=== PATIENT | female | born 1965 | race Caucasian/White ===

== ENCOUNTER → 2017-05-29 | Outpatient (CLI) | payer BC ==
[~2017-05-29] MED LIST: OXYACE5T PO; PROM25 PO; SERT50
[2017-05-31 15:17] LABS: HPV Genotype 16 Not Detected (NOTDET); HPV Genotype 18 Not Detected (NOTDET)
[2017-06-10 16:29] LABS: HPV High Risk Other Not Detected (NOTDET)
== END | disposition home or self-care (01) ==
LOC: OLS 16:56
PROVIDERS: Obstetrics & Gynecology Gynecology
DX: Z12.4 Encounter for screening for malignant neoplasm of cervix (principal)
CPT/HCPCS: 87624; G0123

== ENCOUNTER → 2017-10-24 | Outpatient (CLI) | payer BC | END | disposition home or self-care (01) | LOC: LAB EV 17:41 → LAB SHORT 17:41 | DX: R07.0 Pain in throat (principal) | CPT/HCPCS: 87070 ==

== ENCOUNTER → 2018-06-03 | Outpatient (CLI) | payer BC ==
[2018-06-06 14:08] LABS: HPV 16 Negative (Negative); HPV 18 Negative (Negative); HPV OTHER HR TYPES Negative (Negative)
== END | disposition home or self-care (01) ==
LOC: LAB 13:49 → LAB SHORT 13:49
PROVIDERS: Obstetrics & Gynecology Gynecology
DX: Z12.4 Encounter for screening for malignant neoplasm of cervix (principal)
CPT/HCPCS: 87624; G0123

== ENCOUNTER 2018-09-11 13:56 | Day surgery (SDC) | payer BC ==
[~2018-09-11] VITALS: Ht 188 cm; Wt 81.6 kg
[2018-09-11] MEDS ORDERED: OMEPRAZOLE MAGN20 MG (14:37)
[2018-09-11] MEDS ORDERED: NORT10S (14:37)
[2018-09-11] MEDS ORDERED: SUMA25 (14:38)
== END 2018-09-11 16:30 | disposition home or self-care (01) ==
LOC: ORSCSDS 13:56
PROVIDERS: Internal Medicine Gastroenterology
PROC: 0DJ08ZZ Inspection of Upper Intestinal Tract, Via Natural or Artificial Opening Endoscopic (ICD-10-PCS; principal; 2018-09-11 15:15)
DX: R10.13 Epigastric pain (principal); Z87.11 Personal history of peptic ulcer disease; F32.9 Major depressive disorder, single episode, unspecified; Z79.899 Other long term (current) drug therapy
CPT/HCPCS: J2704; J7120

== ENCOUNTER 2019-09-22 05:58 | Day surgery (SDC) | payer BC ==
[~2019-09-22] VITALS: Ht 188 cm; Wt 80.2 kg
[~2019-09-22 05:58] MED LIST changes: +NORT10S PO; +OMEPRAZOLE MAGN20 MG PO; +SUMA25 PO
--- NOTE | 2019-09-22 06:40 | NUR ---
Ambulatory in Day Surgery History, Chart, Medications and Allergies reviewed before start of procedure. Lungs clear T/O to Auscultation. Patient confirms NPO status and agrees with scheduled surgery. Pre-Op teaching done. Pt verbalizes understanding.
--- NOTE | 2019-09-22 09:38 | NUR ---
0930- QUESTIONING IF SEEING ST ELEVATION ON 3-LEAD EKG. DR WISE CALLED TO PACU TO ASSESS. 0935- DENIES CHEST PAIN OR DISCOMFORT. DENIES SOB. DR WISE AT BEDSIDE. EKG ORDERED. 0935- 12 LEAD EKG SHOWN TO DR GARCIA. NO NEW ORDERS. ST ELEVATION NOT NOTED ON EKG.
--- NOTE | 2019-09-22 10:03 | NUR ---
1000- NO DRAINAGE NOTED TO ABD STERI STRIP SITES X4. REPORTS ANALGESIC HELPFUL FOR PAIN AND BROUGHT DOWN TO 2/10. DENIES NAUSEA. REPORT GIVEN TO STEP-DOWN RECOVERY NURSE, DEVON VALENZUELA RN.
--- NOTE | 2019-09-22 10:47 | NUR ---
Discharge instructions reviewed with patient. Patient verbalizes understanding. Copy given to patient to take home. Patient up to Ambulate independently. Gait steady. Patient States Post-Procedure ride home has been arranged. Discharged via wheelchair to private car for ride home.
--- NOTE | 2019-09-23 09:19 | NUR ---
09/23/19 0919 Juan Antonio Coppola CORECTED ITEMS
== END 2019-09-22 10:50 | disposition home or self-care (01) ==
LOC: ORSCMMR 05:58 → ORD 07:30 → ORSCMMR 10:50
PROVIDERS: Surgery
PROC: 0FT44ZZ Resection of Gallbladder, Percutaneous Endoscopic Approach (ICD-10-PCS; principal; 2019-09-22 07:30)
DX: K80.10 Calculus of gallbladder with chronic cholecystitis without obstruction (principal); K21.9 Gastro-esophageal reflux disease without esophagitis; Z79.899 Other long term (current) drug therapy
CPT/HCPCS: 88304; 93005; 93010; C1729; J0690; J1100; J2250; J2405; J2704; J2710; J3010; J7120

== ENCOUNTER → 2022-09-12 | Outpatient (CLI) | payer BC ==
[2022-09-13 15:10] LABS: HPV 16 Negative (Negative); HPV 18 Negative (Negative); HPV OTHER HR TYPES Negative (Negative)
== END | disposition home or self-care (01) ==
LOC: LAB 17:06 → LAB SHORT 17:06
PROVIDERS: Obstetrics & Gynecology
DX: Z01.419 Encounter for gynecological examination (general) (routine) without abnormal findings (principal)
CPT/HCPCS: 87624; G0145

== ENCOUNTER 2024-06-09 07:17 | Day surgery (SDC) | payer BC ==
[~2024-06-09] VITALS: Ht 188 cm; Wt 77.2 kg
[2024-06-09] MEDS ORDERED: propofoL 50 ML IV ONE (07:40)
[2024-06-09] MEDS ORDERED: Lactated Ringer's 1,000 ML IV ONE ×2 (07:40→08:18)
--- NOTE | 2024-06-09 09:50 | NUR ---
06/09/24 0950 Lawson Mcclain PT INFORMED TWICE IN PRE-OP THAT THE CASE BEFORE HER IS RUNNING LATE. PT GIVEN PHONE AND CALL LIGHT WITHIN REACH. IN WAITING ROOM INFORMED ROOM IS RUNNING LATE WELL. PT AND APPEARS CALM AND UNDERSTANDING. [employer] GIFT CARD GIVEN TO PATIENT FOR INCONVENIENCE.
[2024-06-09] MEDS ORDERED: Lidocaine HCl 2% Jelly 120MG/6ML SYR (20MG PER ML) ONE (10:32)
[2024-06-09 11:14] VITALS: BP 109/70
--- NOTE | 2024-06-09 15:15 | NUR ---
06/09/24 1515 Carmen Orona CASE STARTED BY JUSTIN CASTILLO AND COMPLETED BY AREN,RN
== END 2024-06-09 11:19 | disposition home or self-care (01) ==
LOC: ORSCSDS 07:17
PROVIDERS: Internal Medicine Gastroenterology
PROC: 0DJD8ZZ Inspection of Lower Intestinal Tract, Via Natural or Artificial Opening Endoscopic (ICD-10-PCS; principal; 2024-06-09 08:45)
DX: Z12.11 Encounter for screening for malignant neoplasm of colon (principal); K21.9 Gastro-esophageal reflux disease without esophagitis; F32.A Depression, unspecified
CPT/HCPCS: A9270; J2704; J7120